=== PATIENT | female | born 1945 | race Two or more races ===

== ENCOUNTER → 2019-03-17 | Outpatient (CLI) | payer OTHER ==
[~2019-03-17] MED LIST: ALPRAZOLAM0.5 MG; ALTACE10 MG; ASA81 MG; CARDURA8 MG; GLIPIZIDE10 MG; GLUCOPHAGE XR500 MG PO; HYZAAR 100/25 T1 TAB PO; LANTUS SOLOSTAR3 ML SQ; LASIX40 MG PO; LIPITOR20 MG PO; METOLAZONE2.5 MG; OMEPRAZOLE20 MG; TARKA 4/2401 BOTTLE PO; VERAPAMIL HCL240 MG; VYTORIN 10-40 M1 TAB
== END | disposition home or self-care (01) ==
LOC: SONOGRAMA 11:53
DX: E04.2 Nontoxic multinodular goiter (principal)

== ENCOUNTER 2019-03-26 18:27 | Emergency (ER) | payer OTHER ==
[~2019-03-26] VITALS: Ht 157.5 cm; Wt 113.4 kg
== END 2019-03-26 22:29 | disposition home or self-care (01) ==
LOC: ER 18:27
DX: M54.31 Sciatica, right side (principal); M51.37 Other intervertebral disc degeneration, lumbosacral region

== ENCOUNTER → 2020-02-08 | Emergency (ER) | payer OTHER ==
[~2020-02-08] VITALS: Ht 157.5 cm; Wt 113.4 kg
[~2020-02-08] MED LIST changes: +AMLODIPINE BESY10 MG PO; +ATORVASTATIN CA40 MG PO; +DOXAZOSIN MESYLA4 MG PO; +IRBESARTAN-HCT1 EAC1 PO; +LANTUS SOL100 UNIT/1 SQ; +METFORMIN HCL500 M3 PO; +OMEPRAZOLE40 MG PO; +VERAPAMIL HCL40 MG PO
== END | disposition designated cancer center or children's hospital (05) ==
LOC: ER 20:50
DX: I62.01 Nontraumatic acute subdural hemorrhage (principal)